=== PATIENT | female | born 2000 | race Caucasian/White ===

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

== ENCOUNTER 2021-07-21 13:55 | Emergency (ER) | payer OTHER, BC | END 2021-07-21 16:36 | disposition home or self-care (01) | LOC: JP.ED 13:55 | DX: J06.9 Acute upper respiratory infection, unspecified (principal) | CPT/HCPCS: 36415; 85025; 99283 ==

== ENCOUNTER 2021-11-01 01:04 | Emergency (ER) | payer OTHER, BC | END 2021-11-01 02:22 | disposition home or self-care (01) | LOC: JP.ED 01:04 | DX: J03.80 Acute tonsillitis due to other specified organisms (principal) | CPT/HCPCS: 36415; 85025; 86308; 87081; 87880-QW; 99281; 99283 ==

== ENCOUNTER 2021-11-20 22:32 | Emergency (ER) | payer OTHER, BC | END 2021-11-20 23:44 | disposition home or self-care (01) | LOC: JP.ED 22:32 | DX: N30.01 Acute cystitis with hematuria (principal) | CPT/HCPCS: 36415; 80048; 81001; 85025; 99283 ==

== ENCOUNTER 2023-09-24 18:52 | Emergency (ER) | payer OTHER, BC | END 2023-09-24 20:15 | disposition home or self-care (01) | LOC: JP.ED 18:52 | DX: S90.412A Abrasion, left great toe, initial encounter (principal); Z79.899 Other long term (current) drug therapy; X58.XXXA Exposure to other specified factors, initial encounter | CPT/HCPCS: 99282; 99283 ==